=== PATIENT | female | born 1990 | race Caucasian/White ===

== ENCOUNTER 2021-06-15 23:48 | Emergency (ER) | payer MEDICAID ==
[~2021-06-15] VITALS: Ht 175.3 cm; Wt 127.0 kg
[2021-06-15 23:55] VITALS: BP_SYST 116
--- NOTE | 2021-06-16 00:24 | NUR ---
Patient to ER bed forrest to [facility] for evaluation. Side rails up. Report given to Sherlyn TIMMONS(reg).
--- NOTE | 2021-06-16 00:58 | NUR ---
Initial assessment by SHANELLE Plata 30yo Female PMH gallbladder removal, C section, wisdom tooth removal. here c/o intermittent R foot pain only when touched. Noted erythema to Right lower foot and induration to R pedal area. Denies any unusual activity, denies foot injury, denies skin issue. No active bleeding noted. Pending MD morrow. Will continue to monitor
--- NOTE | 2021-06-16 01:00 | NUR ---
ANIL Harrell at bedside examining patient.
[2021-06-16 01:04] VITALS: BP_SYST 116
[2021-06-16] MEDS ORDERED: IBUPROFEN 600 MG TABLET PO ONE (01:30)
[2021-06-16] MEDS ORDERED: HYDR-3917 PO (03:15)
[2021-06-16] MEDS ORDERED: MYCOLOG15O TP (03:15)
[2021-06-16] MEDS ORDERED: PRED20TA PO (03:15)
--- NOTE | 2021-06-16 03:54 | NUR ---
Pt discharged home with shoe boot and crutches. Addendum: 06/16/21 at 0355 by [email or web address] SHANELLE Plata
--- NOTE | 2021-06-16 03:56 | NUR ---
Discharge note by SHANELLE Plata Patient given written and verbal discharge instructions and verbalizes understanding. ER MD discussed with patient the results and treatment provided. Patient in stable condition. ID arm band removed. Rx of 3 given. Patient educated on pain management and to follow up with PMD. Pain Scale . Opportunity for questions provided and answered. Medication side effect fact sheet provided.
== END 2021-06-16 03:57 | disposition home or self-care (01) ==
LOC: SED 23:48
DX: B35.4 Tinea corporis (principal); M77.9 Enthesopathy, unspecified
CPT/HCPCS: 99283